=== PATIENT | female | born 1990 | race Caucasian/White ===

== ENCOUNTER 2017-01-15 20:48 | Inpatient (IN) | payer BC ==
[~2017-01-15] VITALS: Ht 157.5 cm; Wt 70.6 kg
[2017-01-15 21:47] LABS: Albumin 3.7 g/dL (3.4-5.0); BUN/Creatinine Ratio 14.9; Calcium 9.4 mg/dL (8.5-10.1); Potassium 3.8 mmol/L (3.5-5.1)
[2017-01-15 21:50] LABS: Bilirubin, Total 0.3 mg/dL (0.2-1.0); Lactic Acid w/Reflex 2.1 mmol/L (0.4-2.0); Total Protein 8.2 g/dL (6.4-8.2)
[2017-01-15 21:57] LABS: Basophils # (auto) 0 uL; Basophils % (auto) 0.5 % (0.0-2.0); CONDITION Y; Eosinophils # (auto) 0 uL; Eosinophils % (auto) 0.3 % (0.0-7.0); Hematocrit 39.7 % (36.0-46.0); Hemoglobin 13.3 g/dL (12.2-16.2); Lymphocytes # (auto) 0.8 uL; Lymphocytes % (auto) 7.4 % (10.0-50.0); Mean Corpuscular Hemoglobin 29.2 pg (28.0-32.0); Mean Corpuscular Hgb Conc. 33.6 g/dL (32.0-36.0); Mean Platelet Volume 8.3 fL (7.4-10.4); Monocytes # (auto) 0.6 uL; Monocytes % (auto) 5.7 % (0.0-12.0); Neutrophils # (auto) 8.9 uL; Neutrophils % (auto) 86.1 % (37.0-80.0); Platelet Count (auto) 290 10^3/uL (140-450); Red Cell Distribution Width 13.1 % (11.6-16.0); White Blood Cell 10.3 10^3/uL (4.4-10.8)
[2017-01-15 22:23] LABS: REFLEX LACTIC ACID YES OR NO YES
[2017-01-15 22:39] LABS: Urine Bilirubin Negative (Negative); Urine Blood Negative /uL (Negative); Urine Color Yellow (Yellow); Urine Glucose Normal (Normal); Urine Ketone 1+ (Negative); Urine Nitrite Negative (Negative); Urine RBC 2 /hpf (0 - 4); Urine Squamous Epithelial Cell FEW /hpf (<5); Urine pH 7.5 (5.0-8.0)
[2017-01-16] MEDS ORDERED: MORPHINE SULFATE 4 MG/ML SYRG IV ONE (01:45)
[2017-01-16] MEDS ORDERED: ONDANSETRON HCL 4 MG/2 ML VIAL IV ONE ×3 (01:45→14:15)
[2017-01-16] MEDS ORDERED: HYDROmorphone HCL 2 MG/ML VL IV ONE ×2 (03:00→11:15)
[2017-01-16] MEDS ORDERED: VANCOMYCIN 1GM/250ML D5W 250 ML IV ONE (03:00)
[2017-01-16] MEDS ORDERED: cefTRIAXone 1GM/50ML D5W 50 ML IV ONE (03:00)
[2017-01-16] MEDS ORDERED: MORPHINE SULF INJ 2 MG/ML SYRINGE 1ML IV PRN ×2 (06:15→14:15)
[2017-01-16 08:00] VITALS: BP 98/52
[2017-01-16] MEDS ORDERED: ESCI20TA PO (08:33)
[2017-01-16] MEDS ORDERED: SIMV10TA73 PO (08:33)
[2017-01-16] MEDS: ONDANSETRON HCL 4 MG/2 ML VIAL IV PRN ×4 (09:18→20:37)
[2017-01-16] MEDS: FAMOTIDINE 20 MG TAB PO SCH ×2 (09:18→22:07)
[2017-01-16] MEDS: SODIUM CHLORIDE 0.9% 1,000 ML IV SCH ×2 (11:30→16:44)
[2017-01-16 12:59] LABS: INR 0.95 (0.9-1.15); Prothrombin Time 10.3 sec (9.37-12.3)
[2017-01-16] MEDS ORDERED: fentaNYL CITRATE 100 MCG/2 ML VL ONE (13:26)
[2017-01-16] MEDS ORDERED: MIDAZOLAM HCL 1MG/1ML-2 ML VIAL ONE (13:26)
[2017-01-16] MEDS ORDERED: PROPOFOL 10 MG/ML 20 ML IV ONE (13:37)
[2017-01-16] MEDS: CLINDAMYCIN 600MG IV 50 ML IV SCH ×2 (14:00→22:08)
[2017-01-16] MEDS ORDERED: HYDROmorphone HCL 2 MG/ML VL IV PRN (14:15)
[2017-01-16] MEDS ORDERED: LABETALOL HCL 5 MG/ML 4ML SYRINGE IV PRN (14:15)
[2017-01-16] MEDS ORDERED: ePHEDrine SULFATE 50 MG/ML AMP IV PRN (14:15)
[2017-01-16] MEDS ORDERED: KETOROLAC TROMETH 30 MG/ML 1ML VIAL IV ONE (14:15)
[2017-01-16] MEDS ORDERED: hydrALAZINE HCL 20 MG/ML VL IV PRN (14:15)
[2017-01-16 14:40] VITALS: BP 112/66
[2017-01-16] MEDS: HYDROmorphone HCL 2 MG/ML VL IV PRN ×2 (16:20→20:36)
[2017-01-16 17:12] VITALS: BP 99/47
[2017-01-16 22:00] VITALS: BP 103/58
[2017-01-17] MEDS: ONDANSETRON HCL 4 MG/2 ML VIAL IV PRN ×3 (00:28→08:27)
[2017-01-17] MEDS: HYDROmorphone HCL 2 MG/ML VL IV PRN ×2 (00:28→22:08)
[2017-01-17 05:00] VITALS: BP 98/52
[2017-01-17] MEDS: CLINDAMYCIN 600MG IV 50 ML IV SCH ×3 (06:21→23:03)
[2017-01-17 06:26] LABS: Basophils # (auto) 0 uL; Basophils % (auto) 0.3 % (0.0-2.0); Eosinophils # (auto) 0 uL; Eosinophils % (auto) 0.3 % (0.0-7.0); Hematocrit 31.9 % (36.0-46.0); Hemoglobin 10.9 g/dL (12.2-16.2); Lymphocytes # (auto) 1.1 uL; Mean Corpuscular Hemoglobin 29.8 pg (28.0-32.0); Mean Corpuscular Hgb Conc. 34.1 g/dL (32.0-36.0); Mean Corpuscular Volume 87.4 fL (80.0-100.0); Mean Platelet Volume 7.2 fL (7.4-10.4); Monocytes # (auto) 0.5 uL; Neutrophils # (auto) 6.1 uL; Neutrophils % (auto) 78.4 % (37.0-80.0); Platelet Count (auto) 169 10^3/uL (140-450); Red Cell Distribution Width 13.1 % (11.6-16.0); White Blood Cell 7.8 10^3/uL (4.4-10.8)
[2017-01-17 06:46] LABS: Albumin 2.4 g/dL (3.4-5.0); Calcium 7.8 mg/dL (8.5-10.1); Potassium 4.4 mmol/L (3.5-5.1)
[2017-01-17 06:47] LABS: BUN/Creatinine Ratio 13.8
[2017-01-17 06:59] LABS: Bilirubin, Total 0.2 mg/dL (0.2-1.0); Total Protein 5.8 g/dL (6.4-8.2)
[2017-01-17] MEDS: cefTRIAXone 1GM/50ML D5W 50 ML IV SCH (08:26)
[2017-01-17] MEDS: ACETAMINOPHEN 325 MG TAB PO PRN ×2 (09:20→20:36)
[2017-01-17] MEDS: FAMOTIDINE 20 MG TAB PO SCH ×2 (09:20→23:02)
[2017-01-17 09:51] VITALS: BP 98/62
[2017-01-17] MEDS ORDERED: CITALOPRAM HYDROBR 20 MG TAB PO ONE (10:15)
[2017-01-17 13:00] VITALS: BP 104/59
[2017-01-17] MEDS: HYDROcodone-ACET 5/325MG TAB PO PRN ×2 (13:44→18:27)
[2017-01-17 17:21] VITALS: BP 104/60
[2017-01-17 22:00] VITALS: BP 114/75
[2017-01-18] MEDS: HYDROcodone-ACET 5/325MG TAB PO PRN ×3 (04:23→19:23)
[2017-01-18] MEDS: ONDANSETRON HCL 4 MG/2 ML VIAL IV PRN (04:23)
[2017-01-18 05:00] VITALS: BP 101/59
[2017-01-18] MEDS: CLINDAMYCIN 600MG IV 50 ML IV SCH ×2 (05:42→14:00)
[2017-01-18] MEDS: cefTRIAXone 1GM/50ML D5W 50 ML IV SCH (08:59)
[2017-01-18] MEDS: HYDROmorphone HCL 2 MG/ML VL IV PRN ×3 (08:59→22:35)
[2017-01-18 09:00] VITALS: BP 117/87
[2017-01-18] MEDS: FAMOTIDINE 20 MG TAB PO SCH ×2 (10:18→22:00)
[2017-01-18] MEDS: CITALOPRAM HYDROBR 20 MG TAB PO SCH (10:18)
[2017-01-18 13:00] VITALS: BP 97/68
[2017-01-18] MEDS ORDERED: VANCOMYCIN PER PHARMACY 0 MG IV SCH (15:15)
[2017-01-18] MEDS: VANCOMYCIN 1GM/250ML D5W 250 ML IV SCH (16:50)
[2017-01-18 17:00] VITALS: BP 96/50
[2017-01-18 22:00] VITALS: BP 118/77
[2017-01-19] MEDS: HYDROmorphone HCL 2 MG/ML VL IV PRN ×3 (04:32→16:12)
[2017-01-19 05:00] VITALS: BP 116/62
[2017-01-19] MEDS: VANCOMYCIN 1GM/250ML D5W 250 ML IV SCH ×2 (05:00→16:45)
[2017-01-19 06:00] LABS: Basophils # (auto) 0 uL; Basophils % (auto) 0.6 % (0.0-2.0); CONDITION Y; Eosinophils # (auto) 0.1 uL; Eosinophils % (auto) 2.4 % (0.0-7.0); Hemoglobin 12.4 g/dL (12.2-16.2); Lymphocytes # (auto) 1.8 uL; Lymphocytes % (auto) 34.9 % (10.0-50.0); Mean Corpuscular Hemoglobin 29.2 pg (28.0-32.0); Mean Corpuscular Hgb Conc. 33.6 g/dL (32.0-36.0); Mean Corpuscular Volume 86.8 fL (80.0-100.0); Mean Platelet Volume 7.1 fL (7.4-10.4); Monocytes # (auto) 0.4 uL; Monocytes % (auto) 8.1 % (0.0-12.0); Neutrophils # (auto) 2.8 uL; Platelet Count (auto) 279 10^3/uL (140-450); White Blood Cell 5.2 10^3/uL (4.4-10.8)
[2017-01-19 09:09] VITALS: BP 106/60
[2017-01-19] MEDS: FAMOTIDINE 20 MG TAB PO SCH ×2 (10:05→21:35)
[2017-01-19] MEDS: CITALOPRAM HYDROBR 20 MG TAB PO SCH (10:05)
[2017-01-19 12:14] VITALS: BP 123/78
[2017-01-19] MEDS ORDERED: LIDOCAINE 1% HCL (LOCAL ANESTH.) INJ 20ML MDV ID ONE (12:30)
[2017-01-19] MEDS: HYDROcodone-ACET 5/325MG TAB PO PRN (13:31)
[2017-01-19] MEDS ORDERED: DOCUSATE SOD 100 MG CAP PO ONE (16:00)
[2017-01-19 16:48] VITALS: BP 117/81
[2017-01-19] MEDS: SODIUM CHLOR 0.9% PF (SALINE LOCK) 10ML VIAL IV SCH (21:35)
[2017-01-19] MEDS: DOCUSATE SOD 100 MG CAP PO SCH (21:35)
[2017-01-19 21:54] VITALS: BP 127/78
[2017-01-20 04:54] VITALS: BP 117/72
[2017-01-20] MEDS: VANCOMYCIN 1GM/250ML D5W 250 ML IV SCH (06:39)
[2017-01-20 08:37] VITALS: BP 112/52
[2017-01-20] MEDS: SODIUM CHLOR 0.9% PF (SALINE LOCK) 10ML VIAL IV SCH (10:06)
[2017-01-20] MEDS: CITALOPRAM HYDROBR 20 MG TAB PO SCH (10:07)
[2017-01-20] MEDS: FAMOTIDINE 20 MG TAB PO SCH (10:07)
[2017-01-20] MEDS: DOCUSATE SOD 100 MG CAP PO SCH (10:07)
[2017-01-20] MEDS ORDERED: VANCOMYCIN 1,250 MG in D5W 5% 250 ML IV SCH (17:00)
== END 2017-01-20 12:36 | disposition home or self-care (01) | DRG 603 ==
LOC: ER 20:51 → OVERFLOW 20:52 → CENTRAL 01-16 08:00
PROVIDERS: ADMIT Nurse Practitioner; ATTEND Internal Medicine
PROC: 0Y903ZZ Drainage of Right Buttock, Percutaneous Approach (ICD-10-PCS; principal; 2017-01-16 13:29)
DX: L02.31 Cutaneous abscess of buttock (principal); K50.90 Crohn's disease, unspecified, without complications; L03.115 Cellulitis of right lower limb; L02.415 Cutaneous abscess of right lower limb; F41.9 Anxiety disorder, unspecified; F32.9 Major depressive disorder, single episode, unspecified; R63.4 Abnormal weight loss; E78.5 Hyperlipidemia, unspecified; Z80.52 Family history of malignant neoplasm of bladder; Z80.8 Family history of malignant neoplasm of other organs or systems; Z86.14 Personal history of Methicillin resistant Staphylococcus aureus infection; Z68.28 Body mass index [BMI] 28.0-28.9, adult; Z88.0 Allergy status to penicillin
CPT/HCPCS: 36415; 36569; 71010; 80053; 80202; 81001; 83605; 84132; 84702; 85025; 85610; 87040; 87070; 87075; 87077; 87186; 87205; J0696; J2250; J2405; J2704; J3490; J7060